=== PATIENT | male | born 1975 | race Caucasian/White ===

== ENCOUNTER 2017-02-08 15:37 | Emergency (ER) | payer OTHER, BC ==
[2017-02-08 15:40] VITALS: BP 139/91
[2017-02-08] MEDS ORDERED: DIPHTH,PERTUSS(ACELL),TET TOX 0.5 ML DISP.SYRIN. VAX IM ONE (16:00)
[2017-02-08] MEDS ORDERED: LIDOCAINE WITH 8.4% SOD BICARB 3 ML DISP.SYRIN. IJ ONE (17:30)
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
== END 2017-02-08 17:49 | disposition home or self-care (01) ==
LOC: ER 15:37
DX: S61.012A Laceration without foreign body of left thumb without damage to nail, initial encounter (principal); S86.912A Strain of unspecified muscle(s) and tendon(s) at lower leg level, left leg, initial encounter; S60.212A Contusion of left wrist, initial encounter; F12.10 Cannabis abuse, uncomplicated; V29.9XXA Motorcycle rider (driver) (passenger) injured in unspecified traffic accident, initial encounter; Y93.55 Activity, bike riding; Y99.8 Other external cause status; Y92.488 Other paved roadways as the place of occurrence of the external cause
CPT/HCPCS: 12001; 73110; 73130; 73590; 90471; 90715; 99284-25

== ENCOUNTER → 2017-02-18 | Outpatient (CLI) | payer OTHER, BC ==
[2017-02-08 15:40] VITALS: BP 139/91
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
== END | disposition home or self-care (01) ==
LOC: US 11:03
PROVIDERS: ATTEND Family Medicine
DX: M79.605 Pain in left leg (principal); M79.89 Other specified soft tissue disorders; M25.48 Effusion, other site; V29.9XXA Motorcycle rider (driver) (passenger) injured in unspecified traffic accident, initial encounter; Y93.89 Activity, other specified; Y92.89 Other specified places as the place of occurrence of the external cause; Y99.8 Other external cause status
CPT/HCPCS: 73630; 93971

== ENCOUNTER → 2017-03-10 | Outpatient (CLI) | payer BC ==
[2017-02-08 15:40] VITALS: BP 139/91
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
== END | disposition home or self-care (01) ==
LOC: DXRAD 09:17
PROVIDERS: ATTEND Family Medicine
DX: S69.82XA Other specified injuries of left wrist, hand and finger(s), initial encounter (principal); M19.032 Primary osteoarthritis, left wrist; X58.XXXA Exposure to other specified factors, initial encounter; Y93.89 Activity, other specified; Y92.89 Other specified places as the place of occurrence of the external cause; Y99.8 Other external cause status
CPT/HCPCS: 73110

== ENCOUNTER → 2018-01-07 | Outpatient (CLI) | payer BC ==
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
== END | disposition home or self-care (01) ==
LOC: PMG 11:16
PROVIDERS: ATTEND Physician Assistant
DX: S60.032D Contusion of left middle finger without damage to nail, subsequent encounter (principal); M19.032 Primary osteoarthritis, left wrist; E03.9 Hypothyroidism, unspecified; X58.XXXD Exposure to other specified factors, subsequent encounter
CPT/HCPCS: 73140